=== PATIENT | female | born 1985 | race Caucasian/White ===

== ENCOUNTER 2018-01-29 02:25 | Emergency (ER) | payer SELFPAY ==
[~2018-01-29] VITALS: Ht 157.5 cm; Wt 64.5 kg
[2018-01-29 02:31] VITALS: BP 133/88; PULSE 108; TEMP 99.2
== END 2018-01-29 03:40 | disposition left against medical advice (07) ==
LOC: COL.ER 02:25
DX: F10.129 Alcohol abuse with intoxication, unspecified (principal); M54.5 Low back pain; F17.210 Nicotine dependence, cigarettes, uncomplicated; W17.89XA Other fall from one level to another, initial encounter; Y92.59 Other trade areas as the place of occurrence of the external cause